=== PATIENT | female | born 1960 | race Native Hawaiian/Other Pacific Islander ===

== ENCOUNTER 2016-12-05 12:09 | Emergency (ER) | payer BC, OTHER ==
[2016-12-05] MEDS ORDERED: Sodium Chloride 0.9% 1,000 ML IV ONE (13:48)
--- NOTE | 2016-12-05 13:48 | C.PDOC ---
History Of Present Illness 56-year-old female, presents to the emergency department with complaints of back pain. Patient states she was taking a shower this morning, and developed a sharp lower back pain, when she bent down. States she has been experiencing back pain x2 years, frequently, in same area, but today is worse then usual. Patient has not been evaluated by a doctor for back pain. Patient also reports an episode of light headedness at voodoo this morning, and states her had to help her sit down. Denies LOC, nausea/vomiting, diarrhea, fevers, chills , chest pain, urinary/bowel incontinence, weakness or numbness or any other associated symptoms. No other complaints at this time. Time Seen by Provider: 12/05/16 12:57 Chief Complaint (Nursing): Back Pain History Per: Patient History/Exam Limitations: no limitations Current Symptoms Are (Timing): Still Present Severity: Moderate Past Medical History Reviewed: Historical Data, Nursing Documentation, Vital Signs Vital Signs: Last Vital Signs Temp 97.5 F L 12/05/16 15:55 Pulse 76 12/05/16 15:55 Resp 18 12/05/16 15:55 BP 116/69 12/05/16 15:55 Pulse Ox 98 12/05/16 16:09 Family History: States: No Known Family Hx - Social History Hx Alcohol Use: No Hx Substance Use: No - Immunization History Hx Tetanus Toxoid Vaccination: No Hx Influenza Vaccination: No Hx Pneumococcal Vaccination: No Review Of Systems Except As Marked, All Systems Reviewed And Found Negative. Constitutional: Negative for: Fever, Chills Cardiovascular: Positive for: Light Headedness. Negative for: Chest Pain, Palpitations Gastrointestinal: Negative for: Nausea, Vomiting Musculoskeletal: Positive for: Back Pain Neurological: Negative for: Weakness, Numbness, Headache Physical Exam - Physical Exam Appears: Non-toxic, No Acute Distress Skin: Warm, Dry, No Rash Head: Atraumatic, Normacephalic Eye(s): bilateral: Normal Inspection, PERRL, EOMI Ear(s): Bilateral: Normal Nose: Normal Oral Mucosa: Moist Lips: Normal Appearing Neck: Normal ROM Chest: Symmetrical Cardiovascular: Rhythm Regular, No Murmur Respiratory: Normal Breath Sounds, No Accessory Muscle Use Gastrointestinal/Abdominal: Soft, No Tenderness Back: No CVA Tenderness, Vertebral Tenderness (inferior lumbar), Paraspinal Tenderness (paralumbar.) Extremity: Normal ROM Neurological/Psych: Oriented x3, Normal Speech, Normal Motor, Normal Sensation ED Course And Treatment - Laboratory Results Result Diagrams: 12/05/16 13:52 12/05/16 13:52 Lab Interpretation: Abnormal O2 Sat by Pulse Oximetry: 98 Pulse Ox Interpretation: Normal - Other Rad xr back X-Ray: Viewed By Me, Read By Radiologist Interpretation: Accession No. : [id number]. Patient Name / ID : ALHAJI PRINGLE / [id number]. Exam Date : 12/05/2016 14:02:47 ( Approved ). Study Comment : Sex / Age : F / 56Y. Creator : Delon Prince MD. Dictator : Delon Prince MD. Ends Down Checker : Internal Medicine Nurse : Delon Prince MD. Approver2 : Report Date : 12/05/2016 14:36:49. My Comment : . Lumbar spine three views. History: Back pain. Comparison: None available. Findings: Diffuse osteopenia. Mild dextroscoliotic curvature of the lumbar spine. Suggestion of minimal retrolisthesis of L4 on L5 and L5 on S1. Vertebral body heights are preserved. Lower level facet sclerosis and hypertrophy. Impression: Mild dextroscoliotic curvature of the lumbar spine. Suggestion of minimal retrolisthesis of L4 on L5 and L5 on S1. Lower level facet sclerosis and hypertrophy. If pain persists, consider MRI. Progress Note: EKG, Bloodwork, Chest X-Ray, X-Ray LS-Spine, and urinalysis ordered and reviewed. Patient treated with Meclizine, Decadron, IVF and Toradol. Reassessment Condition: Improved (on re-evaluation pt reports resolution of dizziness and back pain. Ambulates with steady gait.) Disposition Counseled Patient/Family Regarding: Studies Performed, Diagnosis, Need For Followup, Rx Given - Disposition Referrals: Gato Garcia MD [Staff Provider] - Brent Kelly MD [Staff Provider] - Disposition: HOME/ ROUTINE Disposition Time: 16:01 Condition: STABLE Additional Instructions: FOLLOW UP WITH PMD AND ENT DOCTOR IN 1-2 DAYS FOR RE-EVALUATION. IF SYMPTOMS GET WORSE OR ANY NEW CONCERNING SYMPTOMS DEVELOP RETURN TO ED. Prescriptions: Meclizine [Meclizine*] 25 mg PO Q6 PRN #30 tab PRN Reason: Dizziness Ibuprofen [Motrin Tab] 1 tab PO Q6H PRN #15 tab PRN Reason: Pain, Moderate (4-7) Instructions: Vertigo (ED), Back Pain (ED) Forms: General Discharge Instructions, Work Excuse - Clinical Impression Clinical Impression: Vertigo, Back pain - Scribe Statement The provider has reviewed the documentation as recorded by the Kana Andino All medical record entries made by the Renayibantonella were at my direction and personally dictated by me. I have reviewed the chart and agree that the record accurately reflects my personal performance of the history, physical exam, medical decision making, and the department course for this patient. I have also personally directed, reviewed, and agree with the discharge instructions and disposition.
[2016-12-05] MEDS ORDERED: Dexamethasone 4 mg/1 ml IVP STA (13:50)
[2016-12-05 14:04] LABS: CHLORIDE 103 mmol/L (98-107)
[2016-12-05 14:05] LABS: BASO % 0.4 % (0.0-2.0); EOS # 0.1 K/uL (0.0-0.7); EOS % 1.5 % (0.0-4.0); HEMATOCRIT 41.5 % (34.0-47.0); LYMPH # 1.8 K/uL (1.0-4.3); LYMPH % 17.9 % (20.0-40.0); MEAN CELL VOLUME 87.6 fL (81.0-99.0); MEAN CORPUSCULAR HEMOGLOBIN 29.1 pg (27.0-31.0); MEAN CORPUSCULAR HGB CONC 33.2 g/dL (33.0-37.0); MEAN PLATELET VOLUME 7.5 fL (7.2-11.7); MONO # 0.4 K/uL (0.0-0.8); MONO % 3.8 % (0.0-10.0); POTASSIUM 3.8 mmol/L (3.6-5.2); RED CELL DISTRIBUTION WIDTH 13.3 % (11.5-14.5); SODIUM 139 mmol/L (132-148); WHITE BLOOD COUNT 9.8 K/uL (4.8-10.8)
[2016-12-05] MEDS ORDERED: Dexamethasone 4 mg/1 ml ONE (14:05)
[2016-12-05] MEDS ORDERED: Sodium Chloride 0.9% 1,000 ML ONE (14:05)
[2016-12-05 14:07] LABS: ALB/GLOB RATIO 1.3 (1.0-2.1); ALKALINE PHOSPHATASE 75 U/L (38-126); AST/SGOT 17 U/L (14-36); BILIRUBIN,TOTAL 0.5 mg/dL (0.2-1.3); BLOOD UREA NITROGEN 11 mg/dL (7-17); CARBON DIOXIDE 26 mmol/L (22-30); GFR AFRICAN-AMERICAN > 60
[2016-12-05 14:08] LABS: ALT/SGPT 17 U/L (9-52); CALCIUM 8.9 mg/dl (8.6-10.4); GLUCOSE,RANDOM 98 mg/dL (65-105)
[2016-12-05 14:23] LABS: RBC URINE 1 /hpf (0-3); URINE BILIRUBIN NEGATIVE (NEGATIVE); URINE BLOOD NEGATIVE (NEGATIVE); URINE COLOR Yellow (YELLOW); URINE GLUCOSE (UA) NORMAL (Normal); URINE KETONE NEGATIVE (NEGATIVE); URINE LEUKOCYTE ESTERASE TRACE Leu/uL (Negative); URINE PROTEIN NEGATIVE (NEGATIVE); URINE UROBILINOGEN NORMAL mg/dL (0.2-1.0); WBC URINE 15 /hpf (0-5)
--- NOTE | 2016-12-05 14:38 | RAD ---
Lumbar spine three views History: Back pain. Comparison: None available. Findings: Diffuse osteopenia. Mild dextroscoliotic curvature of the lumbar spine. Suggestion of minimal retrolisthesis of L4 on L5 and L5 on S1. Vertebral body heights are preserved. Lower level facet sclerosis and hypertrophy. Impression: Mild dextroscoliotic curvature of the lumbar spine. Suggestion of minimal retrolisthesis of L4 on L5 and L5 on S1. Lower level facet sclerosis and hypertrophy. If pain persists, consider MRI.
--- NOTE | 2016-12-05 15:24 | RAD ---
PROCEDURE: CHEST RADIOGRAPH, 1 VIEW HISTORY: DIZZINESS COMPARISON: None available. FINDINGS: LUNGS: Mild venous congestion. Bibasilar breast and nipple shadows. PLEURA: No pneumothorax or pleural fluid seen. CARDIOVASCULAR: Normal. OSSEOUS STRUCTURES: No significant abnormalities. VISUALIZED UPPER ABDOMEN: Normal. OTHER FINDINGS: None. IMPRESSION: Mild venous congestion. Bibasilar breast and nipple shadows.
[2016-12-05 15:56] VITALS: BP 116/69; PULSE 76; RESP 18; TEMP 97.5
[2016-12-05 16:07] VITALS: O2SAT 98
== END 2016-12-05 16:23 | disposition home or self-care (01) ==
LOC: C.ER 12:09
DX: M54.5 Low back pain (principal); R42 Dizziness and giddiness
CPT/HCPCS: 71010; 72100; 80053; 81001; 84484; 85025; 96361; 96374; 96375; 99285; J1100; J1885; J7040